=== PATIENT | female | born 1970 | race Caucasian/White ===

== ENCOUNTER 2023-12-17 15:51 | Emergency (ER) | payer OTHER ==
[~2023-12-17] VITALS: Ht 157.5 cm; Wt 84.0 kg
[~2023-12-17 15:51] MED LIST: GABA-529 MT; HYDR-4001 MT; NAPR500T7 MT
[2023-12-17 15:58] VITALS: BP 97/61; RESP 18; TEMP 98.1; O2SAT 96
[2023-12-17 16:06] VITALS: PULSE 70
== END 2023-12-17 18:45 | disposition left against medical advice (07) ==
LOC: ER 15:51
DX: M79.672 Pain in left foot (principal); Z53.21 Procedure and treatment not carried out due to patient leaving prior to being seen by health care provider